=== PATIENT | female | born 1960 | race Caucasian/White ===

== ENCOUNTER → 2017-03-08 | Outpatient (CLI) | payer OTHER | LOC: FIMAGING 10:30 | DX: Z12.31 Encounter for screening mammogram for malignant neoplasm of breast (principal) | CPT/HCPCS: G0202 ==

== ENCOUNTER → 2017-12-20 | Outpatient (CLI) | payer OTHER | LOC: FIMAGING 14:18 | PROVIDERS: ATTEND Internal Medicine | DX: Z01.811 Encounter for preprocedural respiratory examination (principal); Z87.891 Personal history of nicotine dependence ==

== ENCOUNTER → 2018-03-21 | Outpatient (CLI) | payer OTHER | LOC: FIMAGING 10:27 | PROVIDERS: ATTEND Internal Medicine | DX: Z12.31 Encounter for screening mammogram for malignant neoplasm of breast (principal) ==

== ENCOUNTER 2019-02-18 05:40 | Day surgery (SDC) | payer OTHER ==
[2019-02-18] MEDS ORDERED: LIDOCAINE 1% 2 ML INJ ID PRN (06:04)
[2019-02-18] MEDS ORDERED: LR 1,000 ML IV ONE (06:04)
[2019-02-18] MEDS ORDERED: ceFAZolin 2 GM/DEXTROSE 100 ML IV ONE (06:04)
[2019-02-18] MEDS ORDERED: BUPIVACAINE 0.5% 30 ML SDV ONE (06:33)
[2019-02-18] MEDS ORDERED: SUCCINYLCHOLINE CHLORIDE 200 MG/10 ML SYR IVP ONE (06:41)
[2019-02-18] MEDS ORDERED: fentaNYL 100 MCG/2 ML INJ ONE (06:41)
[2019-02-18] MEDS ORDERED: LIDOCAINE 2% 2 ML INJ ONE (06:41)
[2019-02-18] MEDS ORDERED: DEXAMETHASONE 4 MG/ML VIAL ONE (06:41)
[2019-02-18] MEDS ORDERED: ONDANSETRON 4 MG/2 ML VIAL ONE (06:41)
[2019-02-18] MEDS ORDERED: PROPOFOL 200 MG/20 ML VIAL ONE (06:42)
[2019-02-18] MEDS ORDERED: MIDAZOLAM 2 MG/2 ML VIAL IVP ONE (06:45)
--- NOTE | 2019-02-18 07:00 | PDHPUP ---
History & Physical Update H&P update statement: This history and physical update is based on an assessment of the patient which was completed after admission or registration (within 24 hours), but prior to the surgery/procedure. H&P update: H&P reviewed & patient examined, no change in patient's condition since H&P completed
--- NOTE | 2019-02-18 07:11 | PDANEPAE ---
ANE Past Medical History - Cardiovascular History Hx Hypertension: No Hx Arrhythmias: No Hx Chest Pain: No Hx Coronary Artery / Peripheral Vascular Disease: No Hx CHF / Valvular Disease: No Hx Palpitations: No - Pulmonary History Hx COPD: No Hx Asthma/Reactive Airway Disease: No Hx Recent Upper Respiratory Infection: No Hx Oxygen in Use at Home: No Hx Sleep Apnea: No Sleep Apnea Screening Result - Last Documented: Negative - Neurologic History Hx Cerebrovascular Accident: No Hx Seizures: No Hx Dementia: No - Endocrine History Hx Diabetes: No - Renal History Hx Renal Disorders: No - Liver History Hx Hepatic Disorders: No - Neurological & Psychiatric Hx Hx Neurological and Psychiatric Disorders: Yes Neurological / Psychiatric History Comment: anxiety,depression, ADD - Cancer History Hx Cancer: Yes 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 carpal tunnel sgy bilat 2018l. hardware removed lt knee 2018. rt snyder squamous cell removal 2018 ANE Review of Systems Review of Systems: - Exercise capacity METS (RN): 6 METS ANE Patient History - Allergies Allergies/Adverse Reactions: No Known Allergies Allergy (Verified 02/18/19 06:09) - Home Medications Home Medications: AMITRIPTYLINE HCL [Amitriptyline 25 mg] 0 mg PO HS 06/30/11 [Last Taken 19:00] clonazePAM [Klonopin] mg PO 06/30/11 [Last Taken 02/17/19 12:00] Sertraline HCl [Zoloft 25mg (RX)] 25 mg PO DAILY 03/31/12 [Last Taken 02/17/19 12:00] Bactrim DS 1 tab PO BID 02/18/19 [Last Taken 02/17/19 19:00] Ritalin 5mg (*) 2.5 mg PO BID 02/18/19 [Last Taken 02/17/19 12:00] - NPO status NPO Since - Liquids (Date): 02/17/19 NPO Since - Liquids (Time): 20:30 NPO Since - Solids (Date): 02/17/19 NPO Since - Solids (Time): 20:30 - Smoking Hx Smoking Status: Light smoker - Family Anes Hx Family Hx Anesthesia Complications: none ANE Labs/Vital Signs - Vital Signs Blood Pressure: 129/72 Heart Rate: 70 Respiratory Rate: 14 O2 Sat (%): 95 Height: 162.56 cm Weight: 72.575 kg ANE Physical Exam - Airway Neck exam: FROM Mallampati Score: Class 2 Mouth exam: normal dental/mouth exam - Pulmonary Pulmonary: no respiratory distress, no rales or rhonchi, clear to auscultation - Cardiovascular Cardiovascular: regular rate and rhythym, no murmur, rub, or gallop - ASA Status ASA Status: II ANE Anesthesia Plan Anesthesia Plan: GA w LMA
--- NOTE | 2019-02-18 07:11 | POSTANESTH ---
Post Anesthetic Evaluation Cardiovascular Status: Normal, Stable Respiratory Status: Normal, Stable Level of Consciousness/Mental Status: Can Participate in Eval Pain Control: Adequate, Prn Tx Ordered Nausea/Vomiting Control: Adequate, Prn Tx Ordered Complications Possibly Related to Anesthesia: None Noted
[2019-02-18] MEDS ORDERED: METOCLOPRAMIDE 10 MG/2 ML VIAL IVP PRN (07:37)
[2019-02-18] MEDS ORDERED: fentaNYL 100 MCG/2 ML INJ IVP PRN (07:37)
[2019-02-18] MEDS ORDERED: LR 500 ML IV PRN (07:37)
[2019-02-18] MEDS ORDERED: MEPERIDINE 25 MG/0.5 ML AMP IVP PRN (07:37)
[2019-02-18] MEDS ORDERED: HYDROmorphONE/DILAUDID 2 MG/ML INJ IVP PRN (07:37)
[2019-02-18] MEDS ORDERED: PROMETHAZINE HCL 25 MG/ML INJ IVP PRN (07:37)
[2019-02-18] MEDS ORDERED: NALOXONE HCL 0.4 MG/ML INJ IVP PRN (07:37)
[2019-02-18] MEDS ORDERED: oxyCODONE IR 5 MG TAB PO PRN (07:37)
[2019-02-18] MEDS ORDERED: PHENYLEPHRINE HCL 100 MCG/ML SYR IVP PRN (07:37)
[2019-02-18] MEDS ORDERED: ONDANSETRON 4 MG/2 ML VIAL IVP PRN (07:37)
[2019-02-18] MEDS ORDERED: NS 500 ML IV PRN (07:37)
[2019-02-18] MEDS ORDERED: ePHEDrine SULFATE 25 MG/5 ML SYR ONE (08:00)
--- NOTE | 2019-02-18 08:23 | POSTOPPROG ---
Post Op Note Date of Operation: 02/18/19 Surgeon: Smitha Arriola Anesthesia: GET(General Endotracheal) Pre-op Diagnosis: retained hematoma Post-op Diagnosis: same Indication: 58 yo with hematoma r buttock Procedure: evac hematoma debride skin soft tissue and muscle Findings: [id number] cxm Inf/Abcess present in the surg proc area at time of surgery?: Yes Depth: Deep Incisional (Fascial) EBL: Minimal Drains: Ottoniel Cobb
--- NOTE | 2019-02-18 09:19 | GOP ---
[f rep st] OPERATIVE REPORT DATE OF OPERATION: 02/18/2019 SURGEON: Smitha Arriola MD ANESTHESIA: General. PREOPERATIVE DIAGNOSIS: Traumatic hematoma, right gluteus, retained. POSTOPERATIVE DIAGNOSIS: Traumatic hematoma, right gluteus, retained. PROCEDURE PERFORMED: Evacuation right gluteal hematoma, debridement skin, soft tissue, and muscle wi th drain placement. FINDINGS: SPECIMENS: None. ESTIMATED BLOOD LOSS: About 20 cc of old blood, and approximately 200 of old blood and clot. INDICATIONS: The patient initially fell in [place] on [place] and developed a small hematoma on her butt ock. It was getting smaller and she went swimming with her fins on and then the mass enlarged quite a bit. She had a CT scan performed in [place], which showed a 14 x 14 cm hematoma subcutaneous withou t active extravasation. [place] returned [place] the [place] and then tried to do heat and cold compress it. sky burned herself on a heating pad and then presented to my office due to concerns of infection. DESCRIPTION OF PROCEDURE: The patient was brought into the operating room, placed supine on the tabl e, and general anesthesia was administered. Her bottom was prepped and draped in the usual sterile f ashion. I infiltrated the area with 30 cc of 0.5% Marcaine, made a small incision over the burn and I evacuated of old blood and clot. I fully exposed the wound and the wound measured 14 x 13 x 2 cm d eep and included a portion of the gluteus muscle. I used a curette to debride the skin, soft tissue, and muscle. Copious irrigation was performed. A silicone drain was placed exiting over the right h ip. It was sutured in place with 2-0 nylon. The wound was closed with 2-0 nylon. Silver dressing w as applied. She was placed back into the supine position, awakened in the operating room, extubated, transferred to PACU in stable condition. /[id number]/MODL
[2019-02-18 10:16] VITALS: BP 118/75
== END 2019-02-18 10:10 | disposition home or self-care (01) ==
LOC: FSGY 05:40
PROVIDERS: ATTEND Surgery
DX: S30.0XXA Contusion of lower back and pelvis, initial encounter (principal); W01.198A Fall on same level from slipping, tripping and stumbling with subsequent striking against other object, initial encounter
CPT/HCPCS: J0330; J0690; J1100; J2250; J2405; J2704; J3010

== ENCOUNTER → 2019-03-29 | Outpatient (CLI) | payer OTHER | LOC: FIMAGING 15:17 | PROVIDERS: ATTEND Internal Medicine | DX: Z12.31 Encounter for screening mammogram for malignant neoplasm of breast (principal) ==